=== PATIENT | male | born 1955 | race Caucasian/White ===

== ENCOUNTER 2018-06-18 13:53 | Outpatient (CLI) | payer BC ==
[2018-06-18 16:19] LABS: #Basophils 0.1 thou/uL (0.0-0.2); #Eosinphils 0.2 thou/uL (0.0-0.7); #Lymphocytes 1.7 thou/uL (1.20-3.40); #Monocytes 0.8 thou/uL (0.11-0.59); #Neutrophils 6.2 thou/uL (1.40-6.50); %Basophils 0.9 % (0.0-1.0); %Eosinophils 1.8 % (0.0-10.0); %Monocytes 9.3 % (0.0-10.0); Bilirubin Negative (Negative); Blood, Urine Negative (Negative); Clarity CLEAR (Clear); Glucose, Urine (Dipstick) Negative (Negative); Leukocyte Negative (Negative); Mean Corpuscular HGB CONC 32.6 g/dL (32.0-36.0); Mean Corpuscular Hemoglobin 30.3 pg (27.0-31.0); Mean Platelet Volume 7.4 fL (7.4-10.4); Nitrite Negative (Negative); Platelet Count 277 thou/uL (130-400); Protein, Urine (Dipstick) Negative (Neg-Trace); RBC Distribution Width 13.1 % (11.5-14.5); Red Blood Cell (RBC) Count 4.95 mill/uL (4.70-6.10); Specific Gravity, Urine 1.005 (1.002-1.036); Urobilinogen 0.2 mg/dL (0.2-1.0); pH, Urine 5.5 (5.0-9.0)
[2018-06-18 16:21] LABS: Bacteria/HPF None Seen HPF (None Seen); Hyaline Casts/LPF 0-3 HYALINE CAST LPF (0-3 Hyaline); RBC/HPF 0-3 HPF (0-3); Squamous Epithelial None Seen HPF (0-3); WBC/HPF None Seen HPF (0-3)
[2018-06-18 16:32] LABS: INR-International Normal Ratio 0.9; Prothrombin Time 12.5 SEC (12.0-14.7)
[2018-06-18 16:40] LABS: Anion Gap 11 mmol/L (10-20); BUN (Urea Nitrogen) 15 mg/dL (8.4-25.7); Calc. Creatinine Clearance 0 mL/min (70-130); Calcium 9.7 mg/dL (7.8-10.44); Carbon Dioxide 29 mmol/L (23-31); Chloride 103 mmol/L (98-107); Estimated GFR-MDRD 58; Glucose 113 mg/dL (80-115); Potassium 3.6 mmol/L (3.5-5.1); Sodium 139 mmol/L (136-145)
--- NOTE | 2018-06-19 15:14 | EKG ---
Test Reason : Blood Pressure : / mmHG Vent. Rate : 083 BPM Atrial Rate : 083 BPM P-R Int : 152 ms QRS Dur : 094 ms QT Int : 378 ms P-R-T Axes : 020 -17 027 degrees QTc Int : 444 ms Normal sinus rhythm Minimal voltage criteria for LVH, may be normal variant Cannot rule out Anterior infarct , age undetermined Abnormal ECG When compared with ECG of 11-MAY-2016 19:46, No significant change was found Confirmed by SWEETIE ENNIS, SJosé Antonio ([id number]) on 06/19/2018 3:14:01 PM Referred By: IERO Confirmed By:DR. Art PITT MD
== END 2018-06-18 13:54 | disposition home or self-care (01) ==
LOC: LABBT 13:53
PROVIDERS: ATTEND Orthopaedic Surgery
DX: Z01.818 Encounter for other preprocedural examination (principal); M17.11 Unilateral primary osteoarthritis, right knee
CPT/HCPCS: 80048; 81001; 85025; 85610; 86850; 86900; 86901; 87081; 93005; 93010

== ENCOUNTER 2018-06-18 14:00 | Inpatient (IN) | payer BC ==
[2018-06-18 14:25] VITALS: BMI 42.5
[2018-06-22] MEDS ORDERED: Famotidine/PF 20 mg/2ml Vial ONE (06:20)
[2018-06-22] MEDS ORDERED: Midazolam HCl 2 mg/2 ml Vial ONE (06:20)
[2018-06-22] MEDS ORDERED: Fentanyl 100 MCG/2 ML VIAL ONE ×4 (06:20→10:37)
[2018-06-22] MEDS ORDERED: Clindamycin/D5W 600 mg/50 ml Premix Bag ONE (06:28)
[2018-06-22] MEDS ORDERED: Promethazine HCl 25 MG/ML VIAL IM PRN ×3 (07:12→09:23)
[2018-06-22] MEDS ORDERED: Ondansetron HCl/PF 4 MG/2 ML Vial IVP PRN ×3 (07:12→09:23)
[2018-06-22] MEDS ORDERED: Fentanyl 100 MCG/2 ML VIAL IV PRN (07:12)
[2018-06-22] MEDS ORDERED: HYDROcodone/Acetaminophen 10/325 mg Tablet PO PRN (07:12)
[2018-06-22] MEDS ORDERED: traMADol HCl 50 MG TAB PO PRN ×2 (07:12)
[2018-06-22] MEDS ORDERED: Zolpidem Tartrate 5 MG TAB PO PRN ×2 (07:12→09:22)
[2018-06-22] MEDS ORDERED: Ropivacaine HCl/PF 250 ML in Premix Bag 1 BAG NERVE BLCK SCH (07:12)
[2018-06-22] MEDS ORDERED: Bupivacaine PF 0.5% 30 ML VIAL ONE (07:52)
[2018-06-22] MEDS ORDERED: Acetaminophen 325 MG TAB PO PRN (09:22)
[2018-06-22] MEDS ORDERED: diphenhydrAMINE 25 MG CAP PO PRN (09:22)
[2018-06-22] MEDS ORDERED: Meperidine HCl/PF 25 MG/ML VIAL SLOW IVP PRN (09:23)
[2018-06-22] MEDS ORDERED: Promethazine HCl 25 MG/ML VIAL SLOW IVP PRN (09:23)
[2018-06-22] MEDS ORDERED: Tranexamic Acid 1,000 MG in Sodium Chloride 0.9% 100 ML IVPB SCH (09:30)
--- NOTE | 2018-06-22 11:12 | OP ---
DATE OF PROCEDURE: 06/22/2018 PREOPERATIVE DIAGNOSIS: Right knee osteoarthrosis. POSTOPERATIVE DIAGNOSIS: Right knee osteoarthrosis. PROCEDURE PERFORMED: Right total knee replacement using [employer] pinless navigation. SURGEON: Brian Parkinson M.D. YARN COMBER: Harris Hoyt PA-C. BLOOD LOSS: Minimal. He did have a general anesthetic. He also had preoperative block performed. DISPOSITION: He did go to the recovery room in stable condition. IMPLANTS: To the right knee is a [employer] total knee system, the femur was size 5 cruciate retaining. We used a size 5 universal tibial baseplate. We used a 5 x 11 mm CS X3 poly and an asymm etric 29 x 9 X3 patella. INDICATIONS: Jian is a 63-year-old active male who comes in complaining of chronic right knee pain that has not been responsive to nonoperative measures. At this time, he wished to have the knee repl aced. PROCEDURE IN DETAIL: After all appropriate consent forms were explained and signed, the patient was t aken back to the Operating Room and at this time was given general anesthetic. Once the level of anes thesia was appropriate, a well-padded tourniquet was placed on the right leg and the leg was then pre pped and draped in standard surgical fashion. The limb was exsanguinated and tourniquet taken up to 3 00 mmHg. Midline incision was made with a 10 blade down through the skin and subcutaneous tissue. Bov ie electrocautery was used to coagulate any brisk venous bleeding. A new blade was used to make a med ial parapatellar arthrotomy. Small subperiosteal release was performed medially and excess fat pad wa s removed. The knee was flexed up to gain access to the femur. The femur was navigated and distal fem oral resection was made. Epicondylar access was used to align our sizing jig and this was pinned in p lace. We sized our femur to be a size 5, cruciate retaining, 4:1 cutting block was applied and pinned . Anterior and posterior chamfer cuts were then made. We navigated out our proximal tibia and made ou r proximal tibial resection. Spreaders were used to remove any posterior osteophytes off the back of the femur as well as remaining meniscal tissue. A long alignment edinson was then used to achieve correct rotation of our tibial baseplate and a size 5 was chosen. This was pinned in place. We trialed the p olyethylene and a 5 x 11 mm CS X3 polyethylene gave us full extension and good stability throughout r grant of motion. Two towel clips and a saw were used to cut our patella. Three lug nuts were drilled a nd an asymmetric 29 x 9 X3 patella was trialed which sat nicely in the trochlear groove. We then dril led our femur and punched our tibia. All components were removed. The knee was thoroughly irrigated a nd dried. Cement was mixed into the cement gun on the back table. Components were then placed. The kn ee was held out in full extension until the cement had dried. All excess bone cement was removed. Mu ltiple #2 Vicryl stitches as well as a Quill was used to close our extensor mechanism. 0 Quill follow ed by a running Monoderm was then used to close the skin. Surgicel glue was then used on the skin. On ce this had dried, soft tissue dressing was applied to the limb, tourniquet was let down, and the toe s pinked up nicely. The patient was then awakened and taken to the Recovery Room in stable condition . All counts were correct at the end of the case. The patient did receive preoperative IV antibiotics . The patient was injected with Exparel for postoperative pain relief.
[2018-06-22] MEDS ORDERED: Ropivacaine 0.2% HCl/PF (40 MG/20 ML VIAL) ONE (11:44)
[2018-06-22] MEDS ORDERED: Ropivacaine 0.5% HCl/PF (150 MG/30 ML VIAL) ONE (11:44)
[2018-06-22] MEDS ORDERED: PHENYLEPHRINE-NS 100 MCG/ML 10 ML SYRINGE ONE (11:55)
[2018-06-22] MEDS ORDERED: Succinylcholine Chloride 20 MG/ML 10 ml SYRINGE FS ONE (11:55)
[2018-06-22] MEDS ORDERED: Ketorolac Tromethamine 30 MG/ML VIAL ONE (11:55)
[2018-06-22] MEDS ORDERED: Lidocaine 1% PF 5 ML VIAL ONE (11:55)
[2018-06-22] MEDS ORDERED: PROPOFOL 200 MG/20 ML VIAL ONE (11:55)
[2018-06-22] MEDS ORDERED: Metoclopramide HCl 10 MG/2 ML VIAL ONE (11:55)
[2018-06-22] MEDS ORDERED: ePHEDrine/0.9% NaCl/PF SYRINGE 50 mg/10 ml ONE (11:55)
[2018-06-22] MEDS ORDERED: Dexamethasone 20 MG/5 ML VIAL ONE (11:55)
[2018-06-22] MEDS ORDERED: Ondansetron HCl/PF 4 MG/2 ML Vial ONE (11:55)
[2018-06-22] MEDS: Clindamycin/D5W 900 MG in Premix Bag 1 BAG IVPB SCH ×2 (14:00→18:34)
[2018-06-22] MEDS: Sodium Chloride 0.9% 1,000 ML IV SCH ×2 (15:56→20:45)
--- NOTE | 2018-06-22 18:00 | PDOC.PN ---
- Subjective Encounter Start Date: 06/22/18 Encounter Start Time: 14:40 Pt seen for management of medical comorbidities including hypertension. Denies chest pain, shortness of breath, fevers or chills. - Objective MAR Reviewed: Yes Vital Signs & Weight: Vital Signs (12 hours) Temp Pulse Resp BP Pulse Ox 06/22/18 11:10 97.5 F L 69 18 130/79 94 L Weight Weight 280 lb Additional Labs: Labs reviewed by me Phys Exam - Physical Examination Morbid obesity HEENT: moist MMs Neck: supple Respiratory: clear to auscultation bilateral Cardiovascular: RRR Gastrointestinal: soft distention s/p R knee surgery Neurological: moves all 4 limbs Psychiatric: normal affect Dx/Plan (1) Hypertension Code(s): I10 - ESSENTIAL (PRIMARY) HYPERTENSION Status: Chronic Comment: controlled Add PRN IV hydralazine for blood pressure spikes. (2) BPH (benign prostatic hyperplasia) Code(s): N40.0 - BENIGN PROSTATIC HYPERPLASIA WITHOUT LOWER URINRY TRACT SYMP Status: Chronic Comment: stable, continue Flomax and Proscar (3) Dyslipidemia Code(s): E78.5 - HYPERLIPIDEMIA, UNSPECIFIED Status: Chronic Comment: continue statin (4) Arthritis Code(s): M19.90 - UNSPECIFIED OSTEOARTHRITIS, UNSPECIFIED SITE Status: Chronic Comment: s/p right knee surgery - Plan * . DVT prophylaxis and pain management per primary service. Review of Systems - Review of Systems Respiratory: negative: Cough, Shortness of Breath, Hemoptysis, SOB with Excertion, Pleuritic Pain, Wheezing Cardiovascular: negative: chest pain, palpitations, orthopnea, paroxysmal nocturnal dyspnea, edema, light headedness - Medications/Allergies Allergies/Adverse Reactions: Allergies Allergy/AdvReac Type Severity Reaction Status Date / Time Penicillins Allergy CHILDHOOD Verified 06/18/18 14:25 ALLERGY sulfamethoxazole Allergy Rash Verified 06/18/18 14:25 [From Bactrim] trimethoprim [From Bactrim] Allergy Rash Verified 06/18/18 14:25 Medications: Current Medications Acetaminophen (Tylenol) 650 mg PO Q4H PRN PRN Reason: RENTERIA/ T > 101F; Mild Pain (1-3) Hydrocodone Bitart/Acetaminophen ([place] 10/325) 1 tab PO Q4H PRN PRN Reason: Pain (1-3) Hydrocodone Bitart/Acetaminophen ([place] 10/325) 2 tab PO Q4H PRN PRN Reason: PAIN (4-6) Aspirin (Ecotrin) 81 mg PO BID [facility] Atorvastatin Calcium (Lipitor) 20 mg PO HS [facility] Clopidogrel Bisulfate (Plavix) 75 mg PO DAILY [facility] Diphenhydramine HCl (Benadryl) 25 mg PO Q6H PRN PRN Reason: Itching Fentanyl (Sublimaze) 50 mcg IV Q1H PRN PRN Reason: BREAKTHRU PAIN Ferrous Gluconate (Fergon) 324 mg PO BID [facility] Finasteride (Proscar) 5 mg PO DAILY [facility] Ropivacaine 250 ml/ Device 250 mls @ 10 mls/hr NERVE BLCK INF [facility] Clindamycin Phosphate/Dextrose (900 mg/ Device) 50 mls @ 100 mls/hr IVPB 1300, 1900 [facility] Stop: 06/22/18 19:29 Last Admin: 06/22/18 14:00 Dose: 50 mls Sodium Chloride (Normal Saline 0.9%) 1,000 mls @ 100 mls/hr IV .Q10H [facility] Last Admin: 06/22/18 15:56 Dose: Not Given Vancomycin HCl 2 gm/ Sodium (Chloride) 500 mls @ 250 mls/hr IVPB 1900 [facility] Stop: 06/22/18 20:59 Iron/Minerals/Multivitamins (Theragran M) 1 tab PO DAILY [facility] Ketorolac Tromethamine (Toradol) 15 mg IVP Q6H PRN PRN Reason: Moderate Pain (4-6) Stop: 06/25/18 07:13 Ondansetron HCl (Zofran) 4 mg IVP Q6H PRN PRN Reason: Nausea/Vomiting Pantoprazole Sodium (Protonix) 40 mg PO DAILY [facility] Promethazine HCl (Phenergan) 12.5 mg IM Q4H PRN PRN Reason: Nausea/Vomiting Senna/Docusate Sodium (Senokot S) 2 tab PO BID [facility] Sodium Chloride (Flush - Normal Saline) 10 ml IVF PRN PRN PRN Reason: Saline Flush Tamsulosin HCl (Flomax) 0.4 mg PO HS [facility] Tramadol HCl (Ultram) 100 mg PO Q6H PRN PRN Reason: Mild Pain (1-3) Zolpidem Tartrate (Ambien) 5 mg PO HSPRN PRN PRN Reason: Insomnia
[2018-06-22] MEDS ORDERED: hydrALAZINE 20 MG/ML VIAL SLOW IVP PRN (18:02)
[2018-06-22] MEDS: Ferrous Gluconate 324 MG TAB PO SCH (20:56)
[2018-06-22] MEDS: Senokot S 8.6-50 MG TAB PO SCH (20:56)
[2018-06-22] MEDS: Tamsulosin HCl 0.4 MG CAP PO SCH (20:56)
[2018-06-22] MEDS: Aspirin 81 mg Enteric Coated Tablet PO SCH (20:57)
[2018-06-22] MEDS: Atorvastatin Calcium 20 MG TAB PO SCH (20:57)
[2018-06-22] MEDS: HYDROcodone/Acetaminophen 10/325 mg Tablet PO PRN (21:02)
[2018-06-23] MEDS: HYDROcodone/Acetaminophen 10/325 mg Tablet PO PRN ×4 (05:11→21:39)
[2018-06-23 05:34] LABS: Hemoglobin 12.1 g/dL (14.0-18.0); Mean Corpuscular HGB CONC 31.6 g/dL (32.0-36.0); Mean Corpuscular Hemoglobin 29.7 pg (27.0-31.0); Mean Corpuscular Volume 94.1 fL (78.0-98.0); Platelet Count 192 thou/uL (130-400); RBC Distribution Width 13.2 % (11.5-14.5); Red Blood Cell (RBC) Count 4.06 mill/uL (4.70-6.10); White Blood Cell (WBC) Count 11.6 thou/uL (4.8-10.8)
[2018-06-23] MEDS: Sodium Chloride 0.9% 1,000 ML IV SCH ×2 (06:30→17:14)
[2018-06-23] MEDS: Clopidogrel Bisulfate 75 MG TAB PO SCH (08:31)
[2018-06-23] MEDS: Senokot S 8.6-50 MG TAB PO SCH ×2 (08:31→21:35)
[2018-06-23] MEDS: Aspirin 81 mg Enteric Coated Tablet PO SCH ×2 (08:31→21:35)
[2018-06-23] MEDS: Ferrous Gluconate 324 MG TAB PO SCH ×2 (08:32→21:35)
[2018-06-23] MEDS: Finasteride 5 MG TAB PO SCH (08:32)
[2018-06-23] MEDS: Multivitamin W/ Minerals 1 TAB PO SCH (08:32)
--- NOTE | 2018-06-23 12:02 | PDOC.PN ---
- Subjective Encounter Start Date: 06/23/18 Encounter Start Time: 08:50 Subjective: no chest pain or sob or palp -: is sitting in chair - Objective MAR Reviewed: Yes Vital Signs & Weight: Vital Signs (12 hours) Temp Pulse Resp BP BP Pulse Ox 06/23/18 08:00 98.0 F 84 19 115/74 93 L 06/23/18 07:54 96 06/23/18 04:00 98.4 F 72 18 117/78 96 Weight Weight 280 lb I&O: 06/22/18 06/23/18 06/24/18 06:59 06:59 06:59 Intake Total 500 2280 Output Total 500 Balance 500 1780 Result Diagrams: 06/23/18 05:08 Phys Exam - Physical Examination HEENT: PERRLA, moist MMs Neck: no JVD, supple Respiratory: no wheezing, no rales Cardiovascular: RRR, no significant murmur Gastrointestinal: soft, non-tender, positive bowel sounds Musculoskeletal: pulses present left knee surgical site in dressing, has nerve block Neurological: non-focal, moves all 4 limbs Psychiatric: normal affect, A&O x 3 Dx/Plan (1) Status post total knee replacement, left Code(s): Z96.652 - PRESENCE OF LEFT ARTIFICIAL KNEE JOINT Status: Acute (2) SARITA (obstructive sleep apnea) Code(s): G47.33 - OBSTRUCTIVE SLEEP APNEA (ADULT) (PEDIATRIC) Status: Chronic (3) BPH (benign prostatic hyperplasia) Code(s): N40.0 - BENIGN PROSTATIC HYPERPLASIA WITHOUT LOWER URINRY TRACT SYMP Status: Chronic Qualifiers: Lower urinary tract symptom presence: symptoms absent Qualified Code(s): N40.0 - Benign prostatic hyperplasia without lower urinary tract symptoms Comment: stable, continue Flomax and Proscar (4) Dyslipidemia Code(s): E78.5 - HYPERLIPIDEMIA, UNSPECIFIED Status: Chronic Comment: continue statin (5) GERD (gastroesophageal reflux disease) Code(s): K21.9 - GASTRO-ESOPHAGEAL REFLUX DISEASE WITHOUT ESOPHAGITIS Status: Chronic Qualifiers: Esophagitis presence: esophagitis presence not specified Qualified Code(s) : K21.9 - Gastro-esophageal reflux disease without esophagitis (6) Hypertension Code(s): I10 - ESSENTIAL (PRIMARY) HYPERTENSION Status: Chronic Qualifiers: Hypertension type: essential hypertension Qualified Code(s): I10 - Essential (primary) hypertension (7) Morbid obesity with BMI of 40.0-44.9, adult Code(s): E66.01 - MORBID (SEVERE) OBESITY DUE TO EXCESS CALORIES; Z68.41 - BODY MASS INDEX (BMI) 40.0-44.9, ADULT Status: Chronic - Plan is on asp bid, fentanyl, ropivacaine block, norco prn -: lipitor, plavix, proscar, flomax and oral iron -: PT to mobilize per ortho advice -: dc plan per -: is using cpap when he sleeps * . Review of Systems - Medications/Allergies Allergies/Adverse Reactions: Allergies Allergy/AdvReac Type Severity Reaction Status Date / Time Penicillins Allergy CHILDHOOD Verified 06/18/18 14:25 ALLERGY sulfamethoxazole Allergy Rash Verified 06/18/18 14:25 [From Bactrim] trimethoprim [From Bactrim] Allergy Rash Verified 06/18/18 14:25 Medications: Current Medications Acetaminophen (Tylenol) 650 mg PO Q4H PRN PRN Reason: RENTERIA/ T > 101F; Mild Pain (1-3) Hydrocodone Bitart/Acetaminophen ([place] 10/325) 1 tab PO Q4H PRN PRN Reason: Pain (1-3) Hydrocodone Bitart/Acetaminophen ([place] 10/325) 2 tab PO Q4H PRN PRN Reason: PAIN (4-6) Last Admin: 06/23/18 09:37 Dose: 2 tab Aspirin (Ecotrin) 81 mg PO BID [facility] Last Admin: 06/23/18 08:31 Dose: 81 mg Atorvastatin Calcium (Lipitor) 20 mg PO HS [facility] Last Admin: 06/22/18 20:57 Dose: 20 mg Clopidogrel Bisulfate (Plavix) 75 mg PO DAILY [facility] Last Admin: 06/23/18 08:31 Dose: 75 mg Diphenhydramine HCl (Benadryl) 25 mg PO Q6H PRN PRN Reason: Itching Fentanyl (Sublimaze) 50 mcg IV Q1H PRN PRN Reason: BREAKTHRU PAIN Ferrous Gluconate (Fergon) 324 mg PO BID [facility] Last Admin: 06/23/18 08:32 Dose: 324 mg Finasteride (Proscar) 5 mg PO DAILY [facility] Last Admin: 06/23/18 08:32 Dose: 5 mg Hydralazine HCl (Apresoline) 10 mg SLOW IVP Q6H PRN PRN Reason: SBP Greater Than 170 Ropivacaine 250 ml/ Device 250 mls @ 10 mls/hr NERVE BLCK INF [facility] Last Admin: 06/23/18 11:34 Dose: 250 mls Sodium Chloride (Normal Saline 0.9%) 1,000 mls @ 100 mls/hr IV .Q10H [facility] Last Admin: 06/23/18 06:30 Dose: Not Given Iron/Minerals/Multivitamins (Theragran M) 1 tab PO DAILY [facility] Last Admin: 06/23/18 08:32 Dose: 1 tab Ketorolac Tromethamine (Toradol) 15 mg IVP Q6H PRN PRN Reason: Moderate Pain (4-6) Stop: 06/25/18 07:13 Ondansetron HCl (Zofran) 4 mg IVP Q6H PRN PRN Reason: Nausea/Vomiting Pantoprazole Sodium (Protonix) 40 mg PO DAILY [facility] Last Admin: 06/23/18 08:32 Dose: 40 mg Promethazine HCl (Phenergan) 12.5 mg IM Q4H PRN PRN Reason: Nausea/Vomiting Senna/Docusate Sodium (Senokot S) 2 tab PO BID [facility] Last Admin: 06/23/18 08:31 Dose: 2 tab Sodium Chloride (Flush - Normal Saline) 10 ml IVF PRN PRN PRN Reason: Saline Flush Tamsulosin HCl (Flomax) 0.4 mg PO HS [facility] Last Admin: 06/22/18 20:56 Dose: 0.4 mg Tramadol HCl (Ultram) 100 mg PO Q6H PRN PRN Reason: Mild Pain (1-3) Zolpidem Tartrate (Ambien) 5 mg PO HSPRN PRN PRN Reason: Insomnia
[2018-06-23] MEDS: Ketorolac Tromethamine 30 MG/ML VIAL IVP PRN (16:31)
[2018-06-23] MEDS: traMADol HCl 50 MG TAB PO PRN (16:33)
[2018-06-23] MEDS: Tamsulosin HCl 0.4 MG CAP PO SCH (21:35)
[2018-06-23] MEDS: Atorvastatin Calcium 20 MG TAB PO SCH (21:36)
[2018-06-24] MEDS: Ketorolac Tromethamine 30 MG/ML VIAL IVP PRN ×2 (00:02→06:07)
[2018-06-24] MEDS: Sodium Chloride 0.9% 1,000 ML IV SCH ×2 (00:50→09:39)
[2018-06-24 04:43] LABS: Hemoglobin 11.5 g/dL (14.0-18.0); Mean Corpuscular HGB CONC 31.9 g/dL (32.0-36.0); Mean Platelet Volume 7.4 fL (7.4-10.4); Platelet Count 193 thou/uL (130-400); RBC Distribution Width 13.3 % (11.5-14.5); Red Blood Cell (RBC) Count 3.83 mill/uL (4.70-6.10); White Blood Cell (WBC) Count 12.3 thou/uL (4.8-10.8)
[2018-06-24 07:33] VITALS: BP 138/82; TEMP 97.9
[2018-06-24] MEDS: Clopidogrel Bisulfate 75 MG TAB PO SCH (08:43)
[2018-06-24] MEDS: traMADol HCl 50 MG TAB PO PRN (08:45)
[2018-06-24] MEDS: Aspirin 81 mg Enteric Coated Tablet PO SCH (08:46)
[2018-06-24] MEDS: Senokot S 8.6-50 MG TAB PO SCH (08:46)
[2018-06-24] MEDS: Multivitamin W/ Minerals 1 TAB PO SCH (08:46)
[2018-06-24] MEDS: Ferrous Gluconate 324 MG TAB PO SCH (08:47)
[2018-06-24] MEDS: Finasteride 5 MG TAB PO SCH (08:47)
--- NOTE | 2018-06-24 12:06 | PDOC.PN ---
- Subjective Encounter Start Date: 06/24/18 Encounter Start Time: 09:20 Subjective: feels better, is amb with PT -: no sob or chest pain - Objective MAR Reviewed: Yes Vital Signs & Weight: Vital Signs (12 hours) Temp Pulse Resp BP BP Pulse Ox 06/24/18 07:48 93 L 06/24/18 07:33 97.9 F 84 16 138/82 93 L 06/24/18 04:00 98.1 F 72 18 119/76 95 Weight Admit Weight 280 lb Weight 280 lb I&O: 06/23/18 06/24/18 06/25/18 06:59 06:59 06:59 Intake Total 500 4351.0 10 Output Total 900 400 Balance 500 3451.0 -390 Result Diagrams: 06/24/18 03:39 Phys Exam - Physical Examination HEENT: PERRLA, moist MMs Neck: no JVD, supple Respiratory: no wheezing, no rales Cardiovascular: RRR, no significant murmur Gastrointestinal: soft, non-tender, positive bowel sounds Musculoskeletal: pulses present right knee in crepe Neurological: non-focal, moves all 4 limbs Psychiatric: normal affect, A&O x 3 Dx/Plan (1) SARITA (obstructive sleep apnea) Code(s): G47.33 - OBSTRUCTIVE SLEEP APNEA (ADULT) (PEDIATRIC) Status: Chronic (2) BPH (benign prostatic hyperplasia) Code(s): N40.0 - BENIGN PROSTATIC HYPERPLASIA WITHOUT LOWER URINRY TRACT SYMP Status: Chronic Qualifiers: Lower urinary tract symptom presence: symptoms absent Qualified Code(s): N40.0 - Benign prostatic hyperplasia without lower urinary tract symptoms Comment: stable, continue Flomax and Proscar (3) Dyslipidemia Code(s): E78.5 - HYPERLIPIDEMIA, UNSPECIFIED Status: Chronic Comment: continue statin (4) GERD (gastroesophageal reflux disease) Code(s): K21.9 - GASTRO-ESOPHAGEAL REFLUX DISEASE WITHOUT ESOPHAGITIS Status: Chronic Qualifiers: Esophagitis presence: esophagitis presence not specified Qualified Code(s) : K21.9 - Gastro-esophageal reflux disease without esophagitis (5) Hypertension Code(s): I10 - ESSENTIAL (PRIMARY) HYPERTENSION Status: Chronic Qualifiers: Hypertension type: essential hypertension Qualified Code(s): I10 - Essential (primary) hypertension (6) Morbid obesity with BMI of 40.0-44.9, adult Code(s): E66.01 - MORBID (SEVERE) OBESITY DUE TO EXCESS CALORIES; Z68.41 - BODY MASS INDEX (BMI) 40.0-44.9, ADULT Status: Chronic (7) Status post total knee replacement, right Code(s): Z96.651 - PRESENCE OF RIGHT ARTIFICIAL KNEE JOINT Status: Acute Comment: 06/22/2018 - Plan hemostable -: has amb 64ft with PT yesterday -: is fixing to participate this am with PT -: likely dc plan home today -: continue asp, plavix, zocor, flomax and proscar * .
--- NOTE | 2018-06-24 22:27 | DIS ---
DATE OF ADMISSION: 06/22/2018 DATE OF DISCHARGE: 06/24/2018 DISCHARGE DISPOSITION: To home. PRIMARY DISCHARGE DIAGNOSIS: Patient is status post right knee replacement done on 06/22/2018. SECONDARY DISCHARGE DIAGNOSES: Dyslipidemia, hypertension, obstructive sleep apnea, benign prostatic hypertrophy, obesity, gastroesophageal reflux disease. PROCEDURES DONE DURING HOSPITALIZATION: Patient had right knee replacement done by Dr. Parkinson on 06/22. Discharge H&H 11 and 36, platelet count is 193,000. DISCHARGE MEDICATIONS: Aspirin 81 mg p.o. twice daily for DVT prophylaxis, post-knee surgery, Flomax 0.4 mg p.o. at bedtime, Zocor 40 mg p.o. at bedtime, Protonix 40 mg p.o. daily, finasteride 5 mg pepito ly, Plavix 75 mg daily, Tylenol p.r.n. for pain. ALLERGIES: PENICILLIN and SULFA. DISCHARGE PLAN: Patient is to follow up with Dr. Parkinson as advised. BRIEF COURSE DURING HOSPITALIZATION: Patient initially got electively admitted for right knee replac ement by Dr. Parkinson. This was done on 06/22/2018. Postop [facility] were consulted for comanage ment of medical issues. The patient has remained hemodynamically stable postop. He is participating with physical therapy and has been cleared for discharge today. He needs follow up with Dr. Parkinson as advised. Please see a [id number].
== END 2018-06-24 11:25 | disposition home or self-care (01) | DRG 470 ==
LOC: SJJU 06-22 05:34
PROVIDERS: ADMIT Orthopaedic Surgery; ATTEND Orthopaedic Surgery
PROC: 0SRC0J9 Replacement of Right Knee Joint with Synthetic Substitute, Cemented, Open Approach (ICD-10-PCS; principal; 2018-06-22)
DX: M17.11 Unilateral primary osteoarthritis, right knee (principal); Z68.41 Body mass index [BMI] 40.0-44.9, adult; E78.5 Hyperlipidemia, unspecified; I10 Essential (primary) hypertension; G47.33 Obstructive sleep apnea (adult) (pediatric); N40.0 Benign prostatic hyperplasia without lower urinary tract symptoms; K21.9 Gastro-esophageal reflux disease without esophagitis; Z88.0 Allergy status to penicillin; Z88.2 Allergy status to sulfonamides; E66.01 Morbid (severe) obesity due to excess calories
CPT/HCPCS: 36415; 85027; 96374; C1713; C1776; G8978-GP-CL; G8979-GP-CJ; J0131; J1100; J1885; J2001; J2250; J2405; J2704; J2765; J2795; J3010; J3370; J3490; J7050; S0020; S0028